=== PATIENT | male | born 1955 | race Caucasian/White ===

== ENCOUNTER 2020-03-15 17:45 | Emergency (ER) | payer OTHER ==
[~2020-03-15] VITALS: Ht 172.7 cm; Wt 84.9 kg
[2020-03-15 17:57] VITALS: BP 164/64
[2020-03-15] MEDS ORDERED: POLY10DR3 EACHEYE (18:09)
[2020-03-15] MEDS ORDERED: HYDR-1179 PO (18:09)
[2020-03-15] MEDS ORDERED: DIPH,PERTUSS(ACELL),TET VAC/PF 0.5 ML SYRINGE. VAX IM ONE (18:30)
[2020-03-15] MEDS ORDERED: FLUORESCEIN 1MG EYE STRIP. OU ONE (18:30)
[2020-03-15] MEDS ORDERED: ERYTHROMYCIN 0.5% OPHTH OINTMENT 1GM TUBE. OS ONE (18:30)
[2020-03-15] MEDS ORDERED: CYCLOPENTOLATE 1% OPTH SOLUTION 2ML BOTTLE. OS ONE (18:30)
[2020-03-15] MEDS ORDERED: HYDROcodon/IBUPROFEN 7.5/200MG 1 TAB TABLET PO ONE (18:30)
[2020-03-15] MEDS ORDERED: TETRACAINE 0.5% OPHTH SOLUTION 4ML BOTTLE. OU ONE (18:30)
--- NOTE | 2020-03-15 18:38 | PHYS DOC ---
Past History Past Medical History: No Pertinent History Past Surgical History: Other Alcohol Use: None Drug Use: None General Adult EDM: Chief Complaint: EYE PROBLEMS HPI: HPI: "... I was trimming ... [place] or shrubs... About noon and the stick went right up into my left eye off towards the right... 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 Patient normally wears contacts. Patient did irrigate eye extensively at time of injury. [place] is more a scrub and not a yolande or thorn conway. Visual acuity is 20/20 both eyes, 2020 right eye and 20/ 50 left eye. There is obvious abrasion to the lower lid and to upper lid on left. Abrasion on upper lid is approximately 1 cm. There is abrasion to the sclera area in the left lower quadrant of the left side.. Minimal consensual photophobia in the left eye. There is no obvious mild limbus injection, but conjunctiva injection in the left lower and upper quadrant along the area of abrasion. No obvious cell or flare. There was uptake of fluorescein with black light. No obvious puncture of eye globe. No cell or flare appreciated. The extraocular muscles intact. Patient denies any history of immune suppression. No recent travel. Does not remember his last tetanus shot but more than 5 yrs. . Patient in the past is followed with ophthalmology at [place] as well as the local security site supervisor Dr. Almaguer. No history recent travel. No specific ill contacts. Normally healthy. Review of Systems: Review of Systems: Constitutional: Denies fever or chills Eyes: Complains of left eye injury HENT: Denies nasal congestion or sore throat Respiratory: Denies cough or shortness of breath Cardiovascular: Denies chest pain or edema GI: Denies abdominal pain, nausea, vomiting, bloody stools or diarrhea : Denies dysuria Musculoskeletal: Denies back pain or joint pain Integument: Denies rash Neurologic: Denies headache, focal weakness or sensory changes Endocrine: Denies polyuria or polydipsia Lymphatic: Denies swollen glands Psychiatric: Denies depression or anxiety Family History: Family History: [place] Current Medications: Current Meds: Current Medications Medications (Trade) Dose Ordered Sig/Negin Start Time Stop Time Status Last Admin Dose Admin Cyclopentolate HCl (Cyclogyl) 1 drop 1X ONCE 03/15/20 18:30 03/15/20 18:31 DC 03/15/20 18:17 1 DROP Diphtheria/ Pertussis/Tetanus Vacc (ADACEL TDap SYRINGE) 0.5 ml ONCE ONCE 03/15/20 18:30 03/15/20 18:35 DC Erythromycin (Romycin) 0.25 inch 1X ONCE 03/15/20 18:30 03/15/20 18:31 DC 03/15/20 18:17 0.25 INCH Fluorescein Sodium (Ful-Blanche 1mg) 1 strip 1X ONCE 03/15/20 18:30 03/15/20 18:31 DC 03/15/20 18:18 1 STRIP Hydrocodone Bitartrate/ Ibuprofen (Vicoprofen 7.5-200) 2 tab 1X ONCE 03/15/20 18:30 03/15/20 18:31 DC 03/15/20 18:18 2 TAB Tetracaine HCl (Tetracaine) 1 drop 1X ONCE 03/15/20 18:30 03/15/20 18:31 DC 03/15/20 18:18 1 DROP Allergies: Allergies: Allergies Coded Allergies Type Severity Reaction Last Updated Verified Penicillins Allergy Unknown Childhood diagnosis [birth year] Yes Physical Exam: PE: Constitutional: Well developed, well nourished, moderate acute distress, non- toxic appearance. [] HENT: Normocephalic, atraumatic, bilateral external ears normal, oropharynx moist, no oral exudates, nose normal. [] Eyes: PERRLA, EOMI, conjunctiva injected in left eye, no discharge. Exam of left eye as per HPI Neck: Normal range of motion, no tenderness, supple, no stridor. [] Cardiovascular:Heart rate regular rhythm, no murmur [] Lungs & Thorax: Bilateral breath sounds clear to auscultation [] Abdomen: Bowel sounds normal, soft, no tenderness, no masses, no pulsatile masses. [] Skin: Warm, dry, no erythema, no rash. [] Back: No tenderness, no CVA tenderness. [] Extremities: No tenderness, no cyanosis, no clubbing, ROM intact, no edema. [] Neurologic: Alert and oriented X 3, normal motor function, normal sensory func tion, no focal deficits noted. [] Psychologic: Affect anxious , judgement normal, mood normal. [] Current Patient Data: Vital Signs: Vital Signs Date Time Temp Pulse Resp B/P (MAP) Pulse Ox O2 Delivery O2 Flow Rate FiO2 03/15/20 17:57 97.8 52 16 164/64 (97) 98 EKG: EKG: [] Radiology/Procedures: Radiology/Procedures: [] Heart Score: Risk Factors: Risk Factors: DM, Current or recent (<one month) smoker, HTN, HLP, family history of CAD, obesity. Risk Scores: Score 0 - 3: 2.5% MACE over next 6 weeks - Discharge Home Score 4 - 6: 20.3% MACE over next 6 weeks - Admit for Clinical Observation Score 7 - 10: 72.7% MACE over next 6 weeks - Early Invasive Strategies Course & Med Decision Making: Course & Med Decision Making Pertinent Labs and Imaging studies reviewed. (See chart for details) Do not wear contacts until released by Ophthalmology. Use small amount antibiotic ointment 4 times a day this will cloud vision. Expects some dilation of the left pupil due to the cyclogel. Take Tylenol and ibuprofen for pain. may also take Vicoprofen up to 4 times a day. Must have re exam by ophthalmology. Call for appointment with [facility]. If further problems must present to the emergency room that has an on-call security site supervisor. Expect left eye to be dilated tonight. Expect decrease vision with application of antibiotic ointment. Do not wear contacts.. [1. Left eyelid abrasion and sclera abrasion]- Note-computer malfunction-charting and discharge instructions-system problem Dragon Disclaimer: Matthew Disclaimer: This electronic medical record was generated, in whole or in part, using a voice recognition dictation system. Departure Departure: Referrals: RIDDHI RICO DO (PCP) Scripts Hydrocodone/Ibuprofen (HYDROCODONE-IBUPROFEN 7.5-200 ) 1 Each Tablet 2 TAB PO PRN Q6HRS PRN for PAIN, #30 TAB 0 Refills Prov: FREYA DUNN MD 03/15/20 Polymyxin B Sulf/Trimethoprim (POLYMYXIN B-TMP EYE DROPS) 10 Ml Drops 1 DROP EACHEYE QID for abrasion for 7 Days, #10 ML 0 Refills Prov: FREYA DUNN MD 03/15/20 Matthew Disclaimer This chart was dictated in whole or in part using Voice Recognition software in a busy, high-work load, and often noisy Emergency Department environment. It may contain unintended and wholly unrecognized errors or omissions. FREYA DUNN MD Mar 15, 2020 18:38
== END 2020-03-15 19:20 | disposition home or self-care (01) ==
LOC: ER 17:45
DX: S00.212A Abrasion of left eyelid and periocular area, initial encounter (principal); Z88.0 Allergy status to penicillin; X58.XXXA Exposure to other specified factors, initial encounter; Y93.89 Activity, other specified; Y92.89 Other specified places as the place of occurrence of the external cause; Y99.8 Other external cause status
CPT/HCPCS: 90471; 90715; 99284